=== PATIENT | female | born 1975 | race African-American/Black ===

== ENCOUNTER 2021-11-15 14:04 | Emergency (ER) | payer BC | END 2021-11-15 15:17 | disposition home or self-care (01) | LOC: CSHERS 14:04 | DX: T63.461A Toxic effect of venom of wasps, accidental (unintentional), initial encounter (principal) | CPT/HCPCS: 99282 ==

== ENCOUNTER 2022-03-07 19:00 | Emergency (ER) | payer BC, SELFPAY | END 2022-03-07 20:41 | disposition home or self-care (01) | LOC: CSHERS 19:00 | DX: I10 Essential (primary) hypertension (principal) | CPT/HCPCS: 99283 ==

== ENCOUNTER 2022-04-10 14:45 | Emergency (ER) | payer BC ==
[2022-04-10 15:52] LABS: ALT (SGPT) 15 U/L (8-55); AST (SGOT) 17 U/L (5-34); Albumin 4.4 g/dL (3.5-5.0); Alkaline Phosphatase 62 U/L (40-110); Anion Gap 17 mmol/L (10-20); BUN (Urea Nitrogen) 13 mg/dL (7.0-18.7); Bilirubin, Total 0.4 mg/dL (0.2-1.2); Calc. Creatinine Clearance 0 mL/min (70-130); Calcium 10.2 mg/dL (7.8-10.44); Carbon Dioxide 20 mmol/L (22-29); Chloride 107 mmol/L (98-107); Estimated GFR 76; Globulin 3.1 g/dL (2.4-3.5); Glucose 96 mg/dL (70-105); Protein, Total 7.5 g/dL (6.0-8.3); Sodium 140 mmol/L (136-145)
[2022-04-10 16:14] LABS: #Eosinphils 0.1 10x3/uL (0.0-0.5); #Monocytes 0.4 10x3/uL (0.0-1.1); #Neutrophils 2.4 10x3/uL (1.5-8.4); %Basophils 0.6 % (0.0-2.0); %Eosinophils 2.3 % (0.0-6.0); %Lymphocytes 37.1 % (18.0-47.0); %Monocytes 9.1 % (0.0-10.0); %Neutrophils 50.7 % (40.0-75.0); Mean Corpuscular HGB CONC 34.4 g/dL (32.0-36.0); Mean Corpuscular Hemoglobin 28.4 pg (27.0-33.0); Mean Corpuscular Volume 82.7 fl (81.6-98.3); Mean Platelet Volume 10.4 fl (7.4-10.4); Platelet Count 321 10x3/uL (150-450); RBC Distribution Width 13.9 % (11.5-14.5); Red Blood Cell (RBC) Count 4.57 10x6/uL (3.90-5.03); White Blood Cell (WBC) Count 4.8 10x3/uL (3.5-10.5)
== END 2022-04-10 16:59 | disposition home or self-care (01) ==
LOC: CSHERS 14:45
DX: R00.2 Palpitations (principal); I10 Essential (primary) hypertension
CPT/HCPCS: 36415; 71045; 80053; 84484; 85025; 93005

== ENCOUNTER 2022-10-27 07:52 | Outpatient (CLI) | payer BC | END 2022-10-27 07:53 | disposition home or self-care (01) | LOC: CSHCT 07:52 | PROVIDERS: ATTEND Internal Medicine Gastroenterology | DX: R10.9 Unspecified abdominal pain (principal); Z12.11 Encounter for screening for malignant neoplasm of colon; N83.01 Follicular cyst of right ovary; K44.9 Diaphragmatic hernia without obstruction or gangrene | CPT/HCPCS: 74177 ==

== ENCOUNTER 2023-02-10 15:09 | Emergency (ER) | payer BC | END 2023-02-10 15:49 | disposition left against medical advice (07) | LOC: CSHERS 15:09 | DX: Z53.21 Procedure and treatment not carried out due to patient leaving prior to being seen by health care provider (principal) ==

== ENCOUNTER 2023-04-29 11:44 | Emergency (ER) | payer BC ==
[~2023-04-29 11:44] MED LIST: Iopamidol 370 76% 100 ML VIAL ONE
[2023-04-29 13:04] LABS: #Eosinphils 0.2 10x3/uL (0.0-0.5); #Monocytes 0.7 10x3/uL (0.0-1.1); #Neutrophils 2.3 10x3/uL (1.5-8.4); %Basophils 0.4 % (0.0-2.0); %Eosinophils 3.2 % (0.0-6.0); %Lymphocytes 35.1 % (18.0-47.0); %Neutrophils 47.1 % (40.0-75.0); Hematocrit 36.7 % (34.9-44.5); Hemoglobin 12.6 g/dL (12.0-15.5); Mean Corpuscular HGB CONC 34.3 g/dL (32.0-36.0); Mean Corpuscular Hemoglobin 29.2 pg (27.0-33.0); Mean Corpuscular Volume 85.2 fl (81.6-98.3); Platelet Count 277 10x3/uL (150-450); RBC Distribution Width 14.1 % (11.5-14.5); Red Blood Cell (RBC) Count 4.31 10x6/uL (3.90-5.03); White Blood Cell (WBC) Count 4.9 10x3/uL (3.5-10.5)
[2023-04-29 13:12] LABS: Anion Gap 14 mmol/L (10-20); BUN (Urea Nitrogen) 15 mg/dL (7.0-18.7); Calc. Creatinine Clearance 0 mL/min (70-130); Calcium 9.4 mg/dL (7.8-10.44); Carbon Dioxide 21 mmol/L (22-29); Chloride 104 mmol/L (98-107); Estimated GFR 79; Glucose 84 mg/dL (70-105); Potassium 4.2 mmol/L (3.5-5.1); Sodium 135 mmol/L (136-145)
[2023-04-29 13:14] LABS: BHCG - Serum Negative (NEGATIVE); Pregs Control Background? CLEAR/WHITE (CLR/WHITE); Pregs Control Bar Appear? YES (CONTROL BAR)
== END 2023-04-29 13:49 | disposition home or self-care (01) ==
LOC: CSHERS 11:44
DX: R10.9 Unspecified abdominal pain (principal); I10 Essential (primary) hypertension
CPT/HCPCS: 74177; 80048; 84703; 85025; Q9967